=== PATIENT | male | born 1985 | race Caucasian/White ===

== ENCOUNTER 2016-12-08 00:36 | Emergency (ER) | payer OTHER | END 2016-12-08 05:37 | disposition other institution (70) | LOC: ED 00:36 | DX: Z02.89 Encounter for other administrative examinations (principal) ==

== ENCOUNTER 2016-12-08 00:36 | Emergency (ER) | payer SELFPAY ==
[2016-12-08 00:47] VITALS: BP 118/72
== END 2016-12-08 01:13 | disposition other institution (70) ==
LOC: ED 00:36 → EDSEX 00:36 → ED 01:13
DX: T43.625A Adverse effect of amphetamines, initial encounter (principal); Y92.9 Unspecified place or not applicable